=== PATIENT | male | born 1985 | race Caucasian/White ===

== ENCOUNTER 2024-04-07 00:43 | Day surgery (SDC) | payer OTHER, SELFPAY ==
[2024-03-28 16:18] VITALS: BMI 22.4
--- NOTE | 2024-04-06 16:16 | P.PNAN_ITS ---
Anes - Eval Pre Procedure Procedure: Operation Date: 04/07/24 09:00 Proposed Procedures p Esophagogastroduodenoscopy & Colonoscopy - Americo Diallo DO Date/Time: 04/06/24 16:16 Pre Op Diagnosis: Patient is a [employer] [facility] inmate. JJK Patient Data Age: 39 Gender: M Height: 1.88 m Weight: 79 kg Allergies Allergy/AdvReac Type Severity Reaction Status Date / Time No Known Allergies Allergy Verified 03/28/24 16:13 Home Medications Medication Instructions Recorded Confirmed Type buprenorphine 300 mg/1.5 mL 300 mg subcut [id number] 03/28/24 03/28/24 History solution,exten.rel.subcutaneous syringe ibuprofen 600 mg tablet 600 mg PO TID PRN Pain 03/28/24 03/28/24 History sennosides 8.6 mg tablet (senna) 8.6 mg PO BID PRN Constipation 03/28/24 03/28/24 History triamcinolone acetonide 0.1 % 1 applic topical BID PRN Rash 03/28/24 03/28/24 History topical cream Patient hx anesthesia problems: none Family hx anesthesia problems: none Results Review: All pre-operative results and documents have been reviewed as part of the pre- operative evaluation. [facility] Past Medical History Medical History (Updated 04/06/24 @ 16:16 by Sofía Chavez CRNA) Hepatitis C Social History Social History Substance use type: opiates, methamphetamine and other Other substance usage details: FENTANYL Living arrangements: incarcerated Exam Day of Procedure 04/06/24 16:16
[2024-04-07 07:46] VITALS: BP 118/73; PULSE 89; RESP 20; TEMP 36.5; O2SAT 100
[2024-04-07] MEDS: LACTATED RINGERS 1,000 ML 150 ML IV CONT (07:52)
--- NOTE | 2024-04-07 08:19 | P.PNAN_ITS ---
Anes - Eval Final PreProcedure Day of Procedure 04/07/24 08:19 Patient weight: normal Heart: regular rate and rhythm Lungs: clear to auscultation Airway: Mallampati scale class II Neurological: alert and oriented Last oral intake: >/= 8 hours ASA classification: II Emergent: no Anesthetic plan: proceed Anesthesia type and monitoring: general GIVS and standard monitoring Results Review: All pre-operative results and documents have been reviewed as part of the pre- operative evaluation. Informed Consent: The patient's anesthetic plan and its attendant risks and benefits were discussed with the patient/family/POA. Questions were solicited and answers provided to the satisfaction of the patient/family/POA.
--- NOTE | 2024-04-07 09:13 | PM.IMHP ---
H&P: HPI History of Present Illness Date/Time: 04/07/24 09:13 Chief Complaint: Blood in stool Narrative: this is a 39-year-old man who presents for EGD and colonoscopy. He is a [employer]. He was noticing some bright red bleeding and also had a fecal occult blood test that was positive. He has some occasional upper abdominal pain but no significant acid reflux. He has never had a colonoscopy before. He denies any family history of colon cancer. Review of Systems Review of Systems: All systems reviewed & are unremarkable except as noted in HPI and below Constitutional: Constitutional: Denies chills, Denies fever(s), Denies headache(s) and Denies weight loss Eyes: Eyes: Denies change in vision ENT: Denies dizziness, Denies headache(s), Denies neck mass and Denies throat swelling Cardiovascular: Cardiovascular: Denies chest pain, Denies lightheadedness and Denies dyspnea Respiratory: Respiratory: Denies cough, Denies dyspnea and Denies wheezing Gastrointestinal: Gastrointestinal: Denies abdominal pain, Denies change in bowel habits, Denies nausea and Denies vomiting Genitourinary: Genitourinary: Denies hematuria and Denies dysuria Musculoskeletal: Musculoskeletal: Reports as per HPI Integumentary/Breasts: Skin/Breast: Reports as per HPI Neurologic: Denies dizziness and Denies headache(s) Allergic/Immunologic: Allergic/Immunologic: Denies throat swelling and Denies wheezing [facility] Past Medical History Medical History (Updated 04/07/24 @ 09:14 by Americo Diallo DO) Hepatitis C Social History Social History Substance use type: opiates, methamphetamine and other Other substance usage details: FENTANYL Living arrangements: incarcerated Meds Home Medications and Allergies Home Medications Medication Instructions Recorded Confirmed Type buprenorphine 300 mg/1.5 mL 300 mg subcut [id number] 03/28/24 04/07/24 History solution,exten.rel.subcutaneous syringe ibuprofen 600 mg tablet 600 mg PO TID PRN Pain 03/28/24 04/07/24 History sennosides 8.6 mg tablet (senna) 8.6 mg PO BID PRN Constipation 03/28/24 04/07/24 History triamcinolone acetonide 0.1 % 1 applic topical BID PRN Rash 03/28/24 04/07/24 History topical cream Allergies Allergy/AdvReac Type Severity Reaction Status Date / Time No Known Allergies Allergy Verified 04/07/24 07:44 Vital Signs Vital Signs - 24 hr 04/07/24 07:46 Temperature 97.7 F Pulse Rate 89 Respiratory Rate 20 Blood Pressure 118/73 Pulse Oximetry 100 Oxygen Delivery Room Air Exam Const: General: no acute distress and alert Orientation/consciousness: patient oriented x3 HENMT: Head: normocephalic and atraumatic Ears: hearing grossly normal bilaterally Face/Nose/Sinus: Normal nares present Mouth: Yes Normal oral and palatal mucosa present Eyes: Periorbital: periorbital findings normal Sclera: sclerae normal EOM: EOMs intact bilaterally Neck: Neck: normal visual inspection, no lymphadenopathy and trachea midline Chest: Chest palpation & inspection: normal inspection of the chest Resp: Effort & Inspection: normal respiratory effort Auscultation: clear to auscultation bilaterally Cardio: Jugular venous distension: no JVD Rate: regular rate Rhythm: regular rhythm Heart sounds: S1 normal heart sound present and S2 normal heart sound present Peripheral pulses: Peripheral pulses 2+ throughout GI: Inspection: normal to inspection GI Palp: Yes Soft to palpation, No Tenderness to palpation present (GI), No Guarding due to palpation present (GI) and No Rebound tenderness present Percussion: Yes normal to percussion Auscultation: normal bowel sounds : General: Yes no CVA tenderness Back/Spine/Pelvis: Back: no CVA tenderness Neuro: General: patient oriented x3, no focal motor deficits and CN's II-XI intact bilaterally Cognition (Neuro): normal cognition Speech: normal speech Motor exam (neuro): 5/5 motor strength present throughout Extrem: General: capillary refill normal and no clubbing, cyanosis or edema Assessment and Plan Assessment and plan (1) Blood in stool: Code(s): K92.1 - Melena Status: Acute Assessment and Plan: I have recommended EGD and colonoscopy. I have discussed the procedure, risks, benefits, and alternatives. Questions were answered. Patient is agreeable to proceed.
--- NOTE | 2024-04-07 09:45 | SUR.OPER ---
EGD end 930 Colonoscopy start 943
[2024-04-07 10:04] VITALS: BP 83/43; PULSE 82; RESP 17; O2SAT 100
[2024-04-07 10:14] VITALS: BP 95/59; PULSE 85; RESP 16; O2SAT 100
[2024-04-07 10:24] VITALS: BP 98/62; PULSE 72; RESP 20; O2SAT 100
== END 2024-04-07 10:35 | disposition home or self-care (01) ==
PROVIDERS: PCP Physician Assistant; Visit Provider Surgery
PROC: 0DJ08ZZ Inspection of Upper Intestinal Tract, Via Natural or Artificial Opening Endoscopic (ICD-10-PCS; CPT 43235; principal; 2024-04-07 09:00)
DX: K92.1 Melena (principal); K64.8 Other hemorrhoids; B19.20 Unspecified viral hepatitis C without hepatic coma
CPT/HCPCS: 45378; 43235; J2003; J2704; J7120